=== PATIENT | female | born 1975 | race Caucasian/White ===

== ENCOUNTER 2018-10-08 14:44 | Day surgery (SDC) | payer MEDICAID ==
[2018-10-08] MEDS ORDERED: Sodium Chloride 0.9% 1,000 ML IV SCH (15:45)
[2018-10-08] MEDS ORDERED: Sodium Chloride 0.9% 10 ML Syringe FLUSH ONE (16:24)
[2018-10-08] MEDS ORDERED: Sodium Chloride 0.9% 75 ML IV ONE (16:24)
[2018-10-08] MEDS ORDERED: Iopamidol 612 MG/ML 100 ML Bottle IV SCH (16:30)
--- NOTE | 2018-10-08 16:32 | EDM.PDOC ---
ED HPI GENERAL MEDICAL PROBLEM - General Chief Complaint: Abdominal Pain Stated Complaint: ABD PAIN Time Seen by Provider: 10/08/18 15:15 Source of Information: Reports: Patient History Limitations: Reports: No Limitations - History of Present Illness INITIAL COMMENTS - FREE TEXT/NARRATIVE: 42-year-old female presents to the emergency room with abdominal pain. She was seen 5 days ago on the clinic, diagnosed with UTI and started on Cipro. Urinary symptoms did seem to improve but pain in her right upper quadrant and lower abdomen have worsened over the past 48 hours. She denies fevers or chills, nausea or vomiting, has no bowel changes. No previous history of abdominal surgeries and she insists that she is not . She went into the clinic for a recheck and she was sent to the emergency room. Onset: Gradual (over the past 5 days) Severity: Moderate Associated Symptoms: Reports: Loss of Appetite, Malaise. Denies: Confusion, Fever/Chills, Headaches, Shortness of Breath Abdominal Pain Score (Numeric/FACES): 7 - Related Data Allergies Allergy/AdvReac Type Severity Reaction Status Date / Time Latex, Natural Rubber Allergy Rash Verified 10/08/18 21:28 Home Meds: Home Meds Acetaminophen/HYDROcodone [Kensett 325-5 MG] 1 tab PO Q4H PRN #15 tablet 10/09/18 [Rx] cephALEXin [Cephalexin] 500 mg PO TID #12 capsule 10/09/18 [Rx] Past Medical History HEENT History: Reports: Impaired Vision [employer] History: Reports: Social & Family History - Tobacco Use Smoking Status *Q: Never Smoker - Recreational Drug Use Recreational Drug Use: No ED ROS GENERAL - Review of Systems Review Of Systems: See Below Constitutional: Reports: Malaise, Decreased Appetite. Denies: Fever, Chills HEENT: Reports: No Symptoms Respiratory: Reports: No Symptoms Cardiovascular: Reports: No Symptoms GI/Abdominal: Reports: Abdominal Pain, Decreased Appetite. Denies: Constipation , Diarrhea, Nausea, Vomiting : Reports: Dysuria, Frequency (Urinary symptoms have improved over the past 48 hours) Musculoskeletal: Reports: No Symptoms Skin: Reports: No Symptoms Neurological: Reports: No Symptoms Psychiatric: Reports: No Symptoms ED EXAM, GI/ABD - Physical Exam Exam: See Below Exam Limited By: No Limitations General Appearance: Alert, Moderate Distress (Looks fairly uncomfortable) Eyes: Bilateral: Normal Appearance (No jaundice, normal hydration) Respiratory/Chest: No Respiratory Distress, Lungs Clear Cardiovascular: Regular Rate, Rhythm GI/Abdominal Exam: Tender (Very tender abdomen to palpation was guarding in the right upper quadrant and across the suprapubic area especially right lower quadrant) Neurological: Alert, Oriented Psychiatric: Normal Affect, Normal Mood Skin Exam: Warm, Dry Course - Vital Signs Last Recorded V/S: Last Vital Signs Temp 98.2 F 10/09/18 11:38 Pulse 65 10/09/18 11:38 Resp 16 10/09/18 11:38 BP 98/53 L 10/09/18 11:38 Pulse Ox 97 10/09/18 11:38 - Orders/Labs/Meds Orders: Active Orders 24 hr Category Date Time Status Patient Status [ADT] Routine ADT 10/08/18 19:49 Active Ambulate [RC] ASDIRECTED Care 10/08/18 21:35 Active Ambulate [RC] PER UNIT ROUTINE Care 10/08/18 21:02 Active Dietary Supplements [RC] BIDMEALS Care 10/08/18 17:39 Active Dietary Supplements [RC] BIDMEALS Care 10/08/18 21:20 Active Head of Bed Elevation [RC] CONTINUOUS Care 10/08/18 21:35 Active Overnight Pulse Oximetry [RC] Click to Edit Care 10/08/18 21:27 Active Oxygen Therapy [RC] PRN Care 10/08/18 21:02 Active Pneumonia Education [RC] UPON Care 10/08/18 21:35 Active RT Incentive Spirometry [RC] PER UNIT ROUTINE Care 10/08/18 21:02 Active RT Incentive Spirometry [RC] Q1HWA Care 10/08/18 21:35 Active Ready for Discharge [RC] PER UNIT ROUTINE Care 10/09/18 15:16 Active Turn, Cough, Deep Breathe [RC] Q1HWA Care 10/08/18 21:35 Active Up to Chair [RC] QID Care 10/08/18 21:02 Active Up to Chair [RC] TIDMEALS Care 10/08/18 21:35 Active Vital Signs [RC] PER UNIT ROUTINE Care 10/08/18 21:02 Active Respiratory Care Assess and Treatment [CONS] Routine Cons 10/08/18 21:35 Active CULTURE ANAEROBIC [RM] Routine Lab 01/14/19 21:03 Received CULTURE URINE [RM] Stat Lab 10/08/18 17:15 Received CULTURE WOUND + SMEAR [RM] Routine Lab 10/08/18 21:03 Results Oral Care [OM.PC] BID Oth 10/08/18 21:45 Ordered Pulse Oximetry Continuous Monitoring [OM.PC] Routine Oth 10/08/18 21:26 Ordered SCD [Sequential Compression Device] [OM.PC] Routine Oth 10/08/18 21:23 Ordered Resuscitation Status Routine Resus Stat 10/08/18 21:02 Ordered Labs: Laboratory Tests 10/08/18 10/08/18 10/08/18 Range/Units 15:40 15:40 15:40 WBC 6.5 (4.5-11.0) K/uL RBC 4.75 (3.30-5.50) M/uL Hgb 13.2 (12.0-15.0) g/dL Hct 39.6 (36.0-48.0) % MCV 83 (80-98) fL MCH 28 (27-31) pg MCHC 33 (32-36) % Plt Count 323 (150-400) K/uL Neut % (Auto) 53 (36-66) % Lymph % (Auto) 34 (24-44) % [place] % (Auto) 11 H (2-6) % Eos % (Auto) 2 (2-4) % Baso % (Auto) 1 (0-1) % Sodium 140 (140-148) mmol/L Potassium 3.3 L (3.6-5.2) mmol/L Chloride 103 (100-108) mmol/L Carbon Dioxide 28 (21-32) mmol/L Anion Gap 12.3 (5.0-14.0) mmol/L BUN 7 (7-18) mg/dL Creatinine 0.8 (0.6-1.0) mg/dL Est Cr Clr Drug Dosing 86.63 mL/min Estimated GFR (MDRD) > 60 (>60) Glucose 97 (74-106) mg/dL Calcium 9.1 (8.5-10.1) mg/dL Total Bilirubin 0.6 (0.2-1.0) mg/dL AST 16 (15-37) U/L ALT 22 (12-78) U/L Alkaline Phosphatase 55 (46-116) U/L Total Protein 7.1 (6.4-8.2) g/dL Albumin 3.6 (3.4-5.0) g/dL Globulin 3.5 (2.3-3.5) g/dL Albumin/Globulin Ratio 1.0 L (1.2-2.2) Amylase 56 (25-115) U/L Lipase 123 (73-393) U/L Urine Color Yellow Urine Appearance Clear Urine pH 7.0 (4.5-8.0) Ur Specific [place] 1.010 (1.008-1.030) Urine Protein Negative (NEGATIVE) mg/dL Urine Glucose (UA) Normal (NEGATIVE) mg/dL Urine Ketones Negative (NEGATIVE) mg/dL Urine Occult Blood Moderate (NEGATIVE) Urine Nitrite Negative (NEGATIVE) Urine Bilirubin Negative (NEGATIVE) Urine Urobilinogen Normal (NORMAL) mg/dL Ur Leukocyte Esterase Small (NEGATIVE) Urine RBC 5-10 H (0-5) Urine WBC 10-20 H (0-5) Ur Epithelial Cells Moderate Amorphous Sediment Not seen Urine Bacteria Moderate Urine Mucus Not seen 10/09/18 10/09/18 Range/Units 05:00 06:08 WBC 12.3 H (4.5-11.0) K/uL RBC 4.03 (3.30-5.50) M/uL Hgb 11.2 L D (12.0-15.0) g/dL Hct 34.2 L (36.0-48.0) % MCV 85 (80-98) fL MCH 28 (27-31) pg MCHC 33 (32-36) % Plt Count 297 (150-400) K/uL Neut % (Auto) 82 H (36-66) % Lymph % (Auto) 11 L (24-44) % [place] % (Auto) 8 H (2-6) % Eos % (Auto) 0 L (2-4) % Baso % (Auto) 0 (0-1) % Sodium (140-148) mmol/L Potassium (3.6-5.2) mmol/L Chloride (100-108) mmol/L Carbon Dioxide (21-32) mmol/L Anion Gap (5.0-14.0) mmol/L BUN (7-18) mg/dL Creatinine (0.6-1.0) mg/dL Est Cr Clr Drug Dosing mL/min Estimated GFR (MDRD) (>60) Glucose (74-106) mg/dL Calcium (8.5-10.1) mg/dL Total Bilirubin 0.5 (0.2-1.0) mg/dL AST (15-37) U/L ALT (12-78) U/L Alkaline Phosphatase 44 L (46-116) U/L Total Protein (6.4-8.2) g/dL Albumin (3.4-5.0) g/dL Globulin (2.3-3.5) g/dL Albumin/Globulin Ratio (1.2-2.2) Amylase (25-115) U/L Lipase (73-393) U/L Urine Color Urine Appearance Urine pH (4.5-8.0) Ur Specific [place] (1.008-1.030) Urine Protein (NEGATIVE) mg/dL Urine Glucose (UA) (NEGATIVE) mg/dL Urine Ketones (NEGATIVE) mg/dL Urine Occult Blood (NEGATIVE) Urine Nitrite (NEGATIVE) Urine Bilirubin (NEGATIVE) Urine Urobilinogen (NORMAL) mg/dL Ur Leukocyte Esterase (NEGATIVE) Urine RBC (0-5) Urine WBC (0-5) Ur Epithelial Cells Amorphous Sediment Urine Bacteria Urine Mucus Meds: Medications Discontinued Medications Generic Name Dose Route Start Last Admin Trade Name Freq PRN Reason Stop Dose Admin Hydrocodone Bitart/Acetaminophen 1 - 2 tab 10/08/18 21:02 10/09/18 14:57 K[place]ett 325-5 Mg PO 1 tab Q4H PRN Administration Pain (moderate 4-6) Bupivacaine HCl Confirm 10/08/18 18:20 10/08/18 20:04 Marcaine 0.5% Administered 10/08/18 18:21 10 ml Dose Administration 50 ml .ROUTE .STK-MED ONE Cephalexin 500 mg 10/08/18 22:00 10/09/18 15:00 Keflex PO 500 mg Q6HR MARK Administration Dexamethasone Confirm 10/08/18 18:17 Dexamethasone Administered 10/08/18 18:18 Dose 4 mg .ROUTE .STK-MED ONE Fentanyl Confirm 10/08/18 18:16 Sublimaze Administered 10/08/18 18:17 Dose 250 mcg .ROUTE .STK-MED ONE Fentanyl 50 mcg 10/08/18 20:48 10/08/18 22:10 Sublimaze IVPUSH 50 mcg Q1H PRN Administration Pain Glycopyrrolate Confirm 10/08/18 18:17 Robinul Administered 10/08/18 18:18 Dose 1 mg .ROUTE .STK-MED ONE Sodium Chloride 1,000 mls @ 500 mls/hr 10/08/18 15:45 10/08/18 15:52 Normal Saline IV 500 mls/hr ASDIRECTED MARK Administration Sodium Chloride 75 mls @ 3.5 mls/sec 10/08/18 16:24 10/08/18 16:39 Normal Saline IV 10/08/18 16:25 3.5 mls/sec ONETIME ONE Administration Ceftriaxone Sodium 1 gm/ 50 mls @ 100 mls/hr 10/08/18 17:32 10/08/18 17:48 Sodium Chloride IV 10/08/18 18:01 100 mls/hr ONETIME ONE Administration Lactated Ringer's Confirm 10/08/18 18:35 Ringers, Lactated Administered 10/08/18 18:36 Dose 1,000 mls @ as directed .ROUTE .STK-MED ONE Dextrose/Lactated Ringer's 1,000 mls @ 125 mls/hr 10/08/18 21:15 10/09/18 04: 57 Dextrose 5%-Lactated Ringers IV 125 mls/hr ASDIRECTED MARK Administration Iopamidol 100 ml 10/08/18 16:30 10/08/18 16:39 Isovue-300 (61%) IV 10/08/18 18:00 100 ml . DIRECTED MARK Administration Lidocaine/Epinephrine Confirm 10/08/18 18:20 10/08/18 20:04 Xylocaine 1% With Epinephrine 1:100,000 Administered 10/08/18 18:21 10 ml Dose Administration 50 ml .ROUTE .STK-MED ONE Midazolam HCl Confirm 10/08/18 18:16 Versed 1 Mg/Ml Administered 10/08/18 18:17 Dose 2 mg .ROUTE .STK-MED ONE Neostigmine Methylsulfate Confirm 10/08/18 18:17 Neostigmine Administered 10/08/18 18:18 Dose 5 mg .ROUTE .STK-MED ONE Ondansetron HCl Confirm 10/08/18 18:17 Zofran Administered 10/08/18 18:18 Dose 4 mg .ROUTE .STK-MED ONE Ondansetron HCl 4 mg 10/08/18 21:02 Zofran IVPUSH Q6H PRN Nausea/Vomiting Propofol Confirm 10/08/18 18:17 Diprivan 20 Ml Administered 10/08/18 18:18 Dose 200 mg .ROUTE .STK-MED ONE Rocuronium [place] Confirm 10/08/18 18:17 Zemuron Administered 10/08/18 18:18 Dose 50 mg .ROUTE .STK-MED ONE Sodium Chloride 10 ml 10/08/18 16:24 10/08/18 16:39 Saline Flush FLUSH 10/08/18 16:25 10 ml ONETIME ONE Administration Succinylcholine Chloride Confirm 10/08/18 18:17 Quelicin Administered 10/08/18 18:18 Dose 200 mg .ROUTE .STK-MED ONE - Re-Assessments/Exams Free Text/Narrative Re-Assessment/Exam: 10/08/18 16:39 UA was repeated, CBC CMP lipase and amylase obtained. Normal saline at 500 mL an hour was started with intent and getting a CT the abdomen and pelvis with contrast. 10/08/18 17:49 UA actually shows more abnormalities now than in the clinic 5 days ago. A culture was initiated. CBC and CMP, lipase and amylase were remarkably normal. CT the abdomen was obtained and showed cholelithiasis with a dilated gall bladder but no pericholecystic fluid or wall thickening. A reexamination confirmed a very significant Sena sign, so this was discussed with Dr. Ramirez. He agreed to come and interview the patient and consider a cholecystectomy tonight, the patient and her are eager to get this resolved. 1 g of Rocephin IV was started to cover the urinary tract infection pending the culture findings in 24-48 hours. IV fluids were continued. Departure - Departure Time of Disposition: 18:36 Disposition: Admitted As Inpatient 67 Condition: Fair Clinical Impression: Cholelithiasis Qualifiers: Cholelithiasis location: gallbladder Cholecystitis presence: with cholecystitis Cholecystitis acuity: acute Biliary obstruction: without biliary obstruction Qualified Code(s): K80.00 - Calculus of gallbladder with acute cholecystitis without obstruction UTI (urinary tract infection) Qualifiers: Urinary tract infection type: acute cystitis Hematuria presence: with hematuria Qualified Code(s): N30.01 - Acute cystitis with hematuria - Discharge Information - My Orders Last 24 Hours: My Active Orders 10/08/18 17:15 CULTURE URINE [RM] Stat 10/08/18 17:39 Dietary Supplements [RC] BIDMEALS - Assessment/Plan Last 24 Hours: My Active Orders 10/08/18 17:15 CULTURE URINE [RM] Stat 10/08/18 17:39 Dietary Supplements [RC] BIDMEALS
[2018-10-08] MEDS ORDERED: cefTRIAXone 1 GM in Sodium Chloride 0.9% 50 ML IV ONE (17:32)
[2018-10-08] MEDS ORDERED: Midazolam 1 MG/ML 2 ML SDV ONE (18:16)
[2018-10-08] MEDS ORDERED: fentaNYL 250 MCG/5 ML SDV ONE (18:16)
[2018-10-08] MEDS ORDERED: Ondansetron 4 MG/2 ML SDV ONE (18:17)
[2018-10-08] MEDS ORDERED: Neostigmine Methylsulfate 1 MG/ML 5 ML Syringe ONE (18:17)
[2018-10-08] MEDS ORDERED: Dexamethasone 4 MG/ML SDV ONE (18:17)
[2018-10-08] MEDS ORDERED: Glycopyrrolate 0.2 MG/ML 5 ML MDV ONE (18:17)
[2018-10-08] MEDS ORDERED: Succinylcholine 200 MG/10 ML MDV ONE (18:17)
[2018-10-08] MEDS ORDERED: Rocuronium 50 MG/5 ML Vial ONE (18:17)
[2018-10-08] MEDS ORDERED: Propofol 200 MG/20 ML SDV ONE (18:17)
[2018-10-08] MEDS ORDERED: Lidocaine 1% with EPINEPHrine 1:100,000 50 ML MDV ONE (18:20)
[2018-10-08] MEDS ORDERED: Bupivacaine 0.5% 50 ML MDV ONE (18:20)
[2018-10-08] MEDS ORDERED: Lactated Ringers 1,000 ML ONE (18:35)
[2018-10-08] MEDS: fentaNYL 100 MCG/2 ML SDV IVPUSH PRN ×2 (20:57→22:10)
[2018-10-08] MEDS ORDERED: Ondansetron 4 MG/2 ML SDV IVPUSH PRN (21:02)
[2018-10-08] MEDS: Dextrose 5%-Lactated Ringers 1,000 ML IV SCH (21:34)
[2018-10-08] MEDS: Cephalexin 250 MG Cap PO SCH (22:39)
[2018-10-08] MEDS: Acetaminophen/HYDROcodone 325-5 MG Tab PO PRN (23:47)
--- NOTE | 2018-10-09 02:39 | OR ---
DATE OF PROCEDURE: 10/08/2018 PREOPERATIVE DIAGNOSIS: Symptomatic cholelithiasis. POSTOPERATIVE DIAGNOSIS: Symptomatic cholelithiasis. PROCEDURE: Laparoscopic cholecystectomy. ANESTHESIA: General endotracheal. INDICATION: This is a 42-year-old white female, who complaints of several days of abdominal pain. She presented to the clinic today and was referred to the emergency room with quite a bit of tenderness in her right upper quadrant. She was worked up in the emergency room with normal liver functions and CBC. A CAT scan of her abdomen and pelvis showed distended gallbladder with two stones in it and almost a cm in diameter. There was no gallbladder wall thickening nor pericholecystic fluid. The ductal system appeared unremarkable. She has had no prior abdominal surgery. She is admitted for a laparoscopic cholecystectomy. I counseled her for this including risks and alternatives and she gave her informed consent to proceed. She is lying in the position on her left side and she cannot lie on her right side, as she is very uncomfortable and tender. DESCRIPTION OF PROCEDURE: After adequate general endotracheal anesthesia was obtained, the patient's abdomen was prepped and draped in the usual sterile fashion. The leg compression stockings were in place and used during the entire procedure. Time-out was held. An infraumbilical semicircular incision was made. Under direct vision, a 12-mm port was introduced in the abdomen through this incision. The camera was introduced into the abdomen and the abdomen was insufflated to a pressure of 15 mmHg with carbon dioxide. No evidence of intraabdominal injury was seen. Under direct vision, a 12-mm port was placed in the epigastrium and a 5-mm port was placed in the right lower quadrant. The gallbladder was grasped and elevated. It was noted to be distended. There were no adhesions to it. The cystic duct and arteries were dissected free. They were each clipped up on the gallbladder and three times proximally and then separately divided. The gallbladder was then dissected free from the gallbladder bed using Bovie electrocautery. The gallbladder was placed in a sample retrieval bag and elevated up through the anterior abdominal wall via the epigastric port site. The epigastric port was reintroduced back in the abdomen. The gallbladder bed was irrigated and suctioned dry, all looked well. No other abnormalities were noted. The epigastric port was removed and the fascial closure device was used to place an 0 Vicryl stitch in this fascial defect. The infraumbilical port was removed with an interrupted stitch of 0 Vicryl used to close this fascial defect. We then evacuated as much CO2 as we could from the abdomen via the 5-mm port site in the right lower quadrant and then this port was removed. Lidocaine 1% with epinephrine in a 50:50 mix with 0.5% Marcaine with epinephrine was infiltrated about all incisions. A 4-0 Vicryl used and a subcuticular stitch was placed to approximate the skin of all incisions. Dermabond was applied. The anesthesia was reversed. She was extubated and brought to the recovery room in good condition. Cristofer Ramirez MD /[id number]
[2018-10-09] MEDS: Cephalexin 250 MG Cap PO SCH ×3 (03:54→15:00)
[2018-10-09] MEDS: Acetaminophen/HYDROcodone 325-5 MG Tab PO PRN ×3 (04:03→14:57)
[2018-10-09] MEDS: Dextrose 5%-Lactated Ringers 1,000 ML IV SCH (04:57)
--- NOTE | 2018-10-09 06:35 | PCM.SURGPN ---
- General Info Date of Service: 10/09/18 Date of Surgery/Procedure: 10/08/18 POD#: 1 Post-Op Diagnosis: Symptomatic cholelithiasis, UTI Functional Status: Reports: Tolerating Diet, Ambulating, Urinating, Incentive Spirometry - Review of Systems General: Reports: No Symptoms HEENT: Reports: No Symptoms Pulmonary: Reports: No Symptoms Cardiovascular: Reports: No Symptoms Gastrointestinal: Reports: Abdominal Pain (Her upper abdominal pain has resolved , her lower abdominal pain persists. ) Genitourinary: Reports: No Symptoms Musculoskeletal: Reports: No Symptoms Skin: Reports: No Symptoms Neurological: Reports: No Symptoms Psychiatric: Reports: No Symptoms - Patient Data Vitals - Most Recent: Last Vital Signs Temp 98.5 F 10/09/18 02:00 Pulse 68 10/09/18 04:02 Resp 18 10/09/18 04:02 BP 100/52 L 10/09/18 04:02 Pulse Ox 95 10/09/18 04:02 Weight - Most Recent: 157 lb 13.616 oz I&O - Last 24 Hours: Intake & Output 10/08/18 10/08/18 10/09/18 14:59 22:59 06:59 Intake Total 360 1394 Output Total 150 Balance 360 1244 Lab Results Last 24 Hrs: Laboratory Results - last 24 hr 10/08/18 10/08/18 10/08/18 Range/Units 15:40 15:40 15:40 WBC 6.5 (4.5-11.0) K/uL RBC 4.75 (3.30-5.50) M/uL Hgb 13.2 (12.0-15.0) g/dL Hct 39.6 (36.0-48.0) % MCV 83 (80-98) fL MCH 28 (27-31) pg MCHC 33 (32-36) % Plt Count 323 (150-400) K/uL Neut % (Auto) 53 (36-66) % Lymph % (Auto) 34 (24-44) % [place] % (Auto) 11 H (2-6) % Eos % (Auto) 2 (2-4) % Baso % (Auto) 1 (0-1) % Sodium 140 (140-148) mmol/L Potassium 3.3 L (3.6-5.2) mmol/L Chloride 103 (100-108) mmol/L Carbon Dioxide 28 (21-32) mmol/L Anion Gap 12.3 (5.0-14.0) mmol/L BUN 7 (7-18) mg/dL Creatinine 0.8 (0.6-1.0) mg/dL Est Cr Clr Drug Dosing 86.63 mL/min Estimated GFR (MDRD) > 60 (>60) Glucose 97 (74-106) mg/dL Calcium 9.1 (8.5-10.1) mg/dL Total Bilirubin 0.6 (0.2-1.0) mg/dL AST 16 (15-37) U/L ALT 22 (12-78) U/L Alkaline Phosphatase 55 (46-116) U/L Total Protein 7.1 (6.4-8.2) g/dL Albumin 3.6 (3.4-5.0) g/dL Globulin 3.5 (2.3-3.5) g/dL Albumin/Globulin Ratio 1.0 L (1.2-2.2) Amylase 56 (25-115) U/L Lipase 123 (73-393) U/L Urine Color Yellow Urine Appearance Clear Urine pH 7.0 (4.5-8.0) Ur Specific [place] 1.010 (1.008-1.030) Urine Protein Negative (NEGATIVE) mg/dL Urine Glucose (UA) Normal (NEGATIVE) mg/dL Urine Ketones Negative (NEGATIVE) mg/dL Urine Occult Blood Moderate (NEGATIVE) Urine Nitrite Negative (NEGATIVE) Urine Bilirubin Negative (NEGATIVE) Urine Urobilinogen Normal (NORMAL) mg/dL Ur Leukocyte Esterase Small (NEGATIVE) Urine RBC 5-10 H (0-5) Urine WBC 10-20 H (0-5) Ur Epithelial Cells Moderate Amorphous Sediment Not seen Urine Bacteria Moderate Urine Mucus Not seen 10/09/18 Range/Units 05:00 WBC 12.3 H (4.5-11.0) K/uL RBC 4.03 (3.30-5.50) M/uL Hgb 11.2 L D (12.0-15.0) g/dL Hct 34.2 L (36.0-48.0) % MCV 85 (80-98) fL MCH 28 (27-31) pg MCHC 33 (32-36) % Plt Count 297 (150-400) K/uL Neut % (Auto) 82 H (36-66) % Lymph % (Auto) 11 L (24-44) % [place] % (Auto) 8 H (2-6) % Eos % (Auto) 0 L (2-4) % Baso % (Auto) 0 (0-1) % Sodium (140-148) mmol/L Potassium (3.6-5.2) mmol/L Chloride (100-108) mmol/L Carbon Dioxide (21-32) mmol/L Anion Gap (5.0-14.0) mmol/L BUN (7-18) mg/dL Creatinine (0.6-1.0) mg/dL Est Cr Clr Drug Dosing mL/min Estimated GFR (MDRD) (>60) Glucose (74-106) mg/dL Calcium (8.5-10.1) mg/dL Total Bilirubin (0.2-1.0) mg/dL AST (15-37) U/L ALT (12-78) U/L Alkaline Phosphatase (46-116) U/L Total Protein (6.4-8.2) g/dL Albumin (3.4-5.0) g/dL Globulin (2.3-3.5) g/dL Albumin/Globulin Ratio (1.2-2.2) Amylase (25-115) U/L Lipase (73-393) U/L Urine Color Urine Appearance Urine pH (4.5-8.0) Ur Specific [place] (1.008-1.030) Urine Protein (NEGATIVE) mg/dL Urine Glucose (UA) (NEGATIVE) mg/dL Urine Ketones (NEGATIVE) mg/dL Urine Occult Blood (NEGATIVE) Urine Nitrite (NEGATIVE) Urine Bilirubin (NEGATIVE) Urine Urobilinogen (NORMAL) mg/dL Ur Leukocyte Esterase (NEGATIVE) Urine RBC (0-5) Urine WBC (0-5) Ur Epithelial Cells Amorphous Sediment Urine Bacteria Urine Mucus Bharath Results Last 24 Hrs: Microbiology 10/08/18 21:03 Gram Stain - Final Gallbladder Med Orders - Current: Current Medications Hydrocodone Bitart/Acetaminophen ([place] 325-5 Mg) 1 - 2 tab PO Q4H PRN PRN Reason: Pain (moderate 4-6) Last Admin: 10/09/18 04:03 Dose: 1 tab Cephalexin (Keflex) 500 mg PO Q6HR MARK Last Admin: 10/09/18 03:54 Dose: 500 mg Fentanyl (Sublimaze) 50 mcg IVPUSH Q1H PRN PRN Reason: Pain Last Admin: 10/08/18 22:10 Dose: 50 mcg Sodium Chloride (Normal Saline) 1,000 mls @ 500 mls/hr IV ASDIRECTED [facility] Last Admin: 10/08/18 15:52 Dose: 500 mls/hr Dextrose/Lactated Ringer's (Dextrose 5%-Lactated Ringers) 1,000 mls @ 125 mls/ hr IV ASDIRECTED [facility] Last Admin: 10/09/18 04:57 Dose: 125 mls/hr Ondansetron HCl (Zofran) 4 mg IVPUSH Q6H PRN PRN Reason: Nausea/Vomiting Discontinued Medications Bupivacaine HCl (Marcaine 0.5%) Confirm Administered Dose 50 ml .ROUTE .STK-MED ONE Stop: 10/08/18 18:21 Last Admin: 10/08/18 20:04 Dose: 10 ml Dexamethasone (Dexamethasone) Confirm Administered Dose 4 mg .ROUTE .STK-MED ONE Stop: 10/08/18 18:18 Fentanyl (Sublimaze) Confirm Administered Dose 250 mcg .ROUTE .STK-MED ONE Stop: 10/08/18 18:17 Glycopyrrolate (Robinul) Confirm Administered Dose 1 mg .ROUTE .STK-MED ONE Stop: 10/08/18 18:18 Sodium Chloride (Normal Saline) 75 mls @ 3.5 mls/sec IV ONETIME ONE Stop: 10/08/18 16:25 Last Admin: 10/08/18 16:39 Dose: 3.5 mls/sec Ceftriaxone Sodium 1 gm/ (Sodium Chloride) 50 mls @ 100 mls/hr IV ONETIME ONE Stop: 10/08/18 18:01 Last Admin: 10/08/18 17:48 Dose: 100 mls/hr Lactated Ringer's (Ringers, Lactated) Confirm Administered Dose 1,000 mls @ as directed .ROUTE .STK-MED ONE Stop: 10/08/18 18:36 Iopamidol (Isovue-300 (61%)) 100 ml IV . DIRECTED [facility] Stop: 10/08/18 18:00 Last Admin: 10/08/18 16:39 Dose: 100 ml Lidocaine/Epinephrine (Xylocaine 1% With Epinephrine 1:100,000) Confirm Administered Dose 50 ml .ROUTE .STK-MED ONE Stop: 10/08/18 18:21 Last Admin: 10/08/18 20:04 Dose: 10 ml Midazolam HCl (Versed 1 Mg/Ml) Confirm Administered Dose 2 mg .ROUTE .STK-MED ONE Stop: 10/08/18 18:17 Neostigmine Methylsulfate (Neostigmine) Confirm Administered Dose 5 mg .ROUTE .STK-MED ONE Stop: 10/08/18 18:18 Ondansetron HCl (Zofran) Confirm Administered Dose 4 mg .ROUTE .STK-MED ONE Stop: 10/08/18 18:18 Propofol (Diprivan 20 Ml) Confirm Administered Dose 200 mg .ROUTE .STK-MED ONE Stop: 10/08/18 18:18 Rocuronium [place] (Zemuron) Confirm Administered Dose 50 mg .ROUTE .STK-MED ONE Stop: 10/08/18 18:18 Sodium Chloride (Saline Flush) 10 ml FLUSH ONETIME ONE Stop: 10/08/18 16:25 Last Admin: 10/08/18 16:39 Dose: 10 ml Succinylcholine Chloride (Quelicin) Confirm Administered Dose 200 mg .ROUTE .STK -MED ONE Stop: 10/08/18 18:18 - Exam Wound/Incisions: Healing Well, No Drainage General: Alert, Oriented, Cooperative, Mild Distress Lungs: Clear to Auscultation, Normal Respiratory Effort Cardiovascular: Regular Rate, Regular Rhythm GI/Abdominal Exam: Normal Bowel Sounds Extremities: Normal Inspection Skin: Warm, Dry, Intact Neurological: No New Focal Deficit Psy/Mental Status: Alert, Normal Affect, Normal Mood - Problem List & Annotations (1) Cholelithiasis SNOMED Code(s): 952427802 Code(s): K80.20 - CALCULUS OF GALLBLADDER W/O CHOLECYSTITIS W/O OBSTRUCTION Status: Acute Current Visit: Yes Qualifiers: Cholelithiasis location: gallbladder Cholecystitis presence: with cholecystitis Cholecystitis acuity: acute Biliary obstruction: without biliary obstruction Qualified Code(s): K80.00 - Calculus of gallbladder with acute cholecystitis without obstruction (2) UTI (urinary tract infection) SNOMED Code(s): 28281756 Code(s): N39.0 - URINARY TRACT INFECTION, SITE NOT SPECIFIED Status: Acute Current Visit: Yes Qualifiers: Urinary tract infection type: acute cystitis Hematuria presence: with hematuria Qualified Code(s): N30.01 - Acute cystitis with hematuria - Problem List Review Problem List Initiated/Reviewed/Updated: Yes - My Orders Last 24 Hours: Active Orders 24 hr Category Date Time Status Patient Status [ADT] Routine ADT 10/08/18 19:49 Active Ambulate [RC] ASDIRECTED Care 10/08/18 21:35 Active Ambulate [RC] PER UNIT ROUTINE Care 10/08/18 21:02 Active Dietary Supplements [RC] BIDMEALS Care 10/08/18 17:39 Active Dietary Supplements [RC] BIDMEALS Care 10/08/18 21:20 Active Head of Bed Elevation [RC] CONTINUOUS Care 10/08/18 21:35 Active Overnight Pulse Oximetry [RC] Click to Edit Care 10/08/18 21:27 Active Oxygen Therapy [RC] PRN Care 10/08/18 21:02 Active Pneumonia Education [RC] UPON Care 10/08/18 21:35 Active RT Incentive Spirometry [RC] PER UNIT ROUTINE Care 10/08/18 21:02 Active RT Incentive Spirometry [RC] Q1HWA Care 10/08/18 21:35 Active Turn, Cough, Deep Breathe [RC] Q1HWA Care 10/08/18 21:35 Active Up to Chair [RC] QID Care 10/08/18 21:02 Active Up to Chair [RC] TIDMEALS Care 10/08/18 21:35 Active Vital Signs [RC] PER UNIT ROUTINE Care 10/08/18 21:02 Active Respiratory Care Assess and Treatment [CONS] Routine Cons 10/08/18 21:35 Active Advance Diet Instructions [DIET] Diet 10/08/18 Breakfast Active Abdomen Pelvis w Cont [CT] Stat Exams 10/08/18 16:20 Taken ALKALINE PHOSPHATASE [CHEM] Routine Lab 10/09/18 06:08 Received BILIRUBIN TOTAL [CHEM] Routine Lab 10/09/18 06:08 Received CULTURE ANAEROBIC [RM] Routine Lab 10/08/18 21:03 Received CULTURE URINE [RM] Stat Lab 10/08/18 17:15 Received CULTURE WOUND + SMEAR [RM] Routine Lab 10/08/18 21:03 Results Acetaminophen/HYDROcodone [[place] 325-5 MG] Med 10/08/18 21:02 Active 1 - 2 tab PO Q4H PRN Dextrose 5%-Lactated Ringers 1,000 ml Med 10/08/18 21:15 Active IV ASDIRECTED Ondansetron [Zofran] Med 10/08/18 21:02 Active 4 mg IVPUSH Q6H PRN Sodium Chloride 0.9% [Normal Saline] 1,000 ml Med 10/08/18 15:45 Active IV ASDIRECTED cephALEXin [Keflex] Med 10/08/18 22:00 Active 500 mg PO Q6HR fentaNYL [Sublimaze] Med 10/08/18 20:48 Active 50 mcg IVPUSH Q1H PRN Oral Care [OM.PC] BID Oth 10/08/18 21:45 Ordered Oral Care [OM.PC] BID Oth 10/09/18 21:45 Ordered Oral Care [OM.PC] BID Oth 10/10/18 21:45 Ordered Oral Care [OM.PC] BID Oth 10/11/18 21:45 Ordered Oral Care [OM.PC] BID Oth 10/12/18 21:45 Ordered Oral Care [OM.PC] BID Oth 10/13/18 21:45 Ordered Oral Care [OM.PC] BID Oth 10/14/18 21:45 Ordered Oral Care [OM.PC] BID Oth 10/15/18 21:45 Ordered Oral Care [OM.PC] BID Oth 10/16/18 21:45 Ordered Oral Care [OM.PC] BID Oth 10/17/18 21:45 Ordered Pulse Oximetry Continuous Monitoring [OM.PC] Routine Oth 10/08/18 21:26 Ordered SCD [Sequential Compression Device] [OM.PC] Routine Oth 10/08/18 21:23 Ordered Resuscitation Status Routine Resus Stat 10/08/18 21:02 Ordered Medication Orders Hydrocodone Bitart/Acetaminophen ([place] 325-5 Mg) 1 - 2 tab PO Q4H PRN PRN Reason: Pain (moderate 4-6) Last Admin: 10/09/18 04:03 Dose: 1 tab Admin: 10/08/18 23:47 Dose: 2 tab Cephalexin (Keflex) 500 mg PO Q6HR MARK Last Admin: 10/09/18 03:54 Dose: 500 mg Admin: 10/08/18 22:39 Dose: 500 mg Fentanyl (Sublimaze) 50 mcg IVPUSH Q1H PRN PRN Reason: Pain Last Admin: 10/08/18 22:10 Dose: 50 mcg Admin: 10/08/18 20:57 Dose: 50 mcg Sodium Chloride (Normal Saline) 1,000 mls @ 500 mls/hr IV ASDIRECTED MARK Last Admin: 10/08/18 15:52 Dose: 500 mls/hr Dextrose/Lactated Ringer's (Dextrose 5%-Lactated Ringers) 1,000 mls @ 125 mls/ hr IV ASDIRECTED MARK Last Admin: 10/09/18 04:57 Dose: 125 mls/hr Infusion: 10/09/18 04:57 Dose: 125 mls/hr Admin: 10/08/18 21:34 Dose: 125 mls/hr Ondansetron HCl (Zofran) 4 mg IVPUSH Q6H PRN PRN Reason: Nausea/Vomiting - Assessment Assessment (Free Text/Narrative):: Tolerating liquids. Still with lower abdominal pain. - Plan Plan (Free Text/Narrative):: Continue oral antibiotics until urine culture is obtained. Advance diet as tolerated.
[2018-10-09 11:39] VITALS: BP 98/53
--- NOTE | 2018-10-09 13:58 | PCM.CONS ---
H&P History of Present Illness - General Date of Service: 10/09/18 Admit Problem/Dx: Admission Diagnosis/Problem Admission Diagnosis/Problem Laparoscopic cholecystectomy Source of Information: Patient, Family, Provider History Limitations: Reports: No Limitations - History of Present Illness Initial Comments - Free Text/Narative: I was asked to see Lo today by Dr. Ramriez regarding mid and lower abdominal pain not explained by CT scan or current acute issues. Patient reports 4 days of fairly severe right upper quadrant pain as well as some progressive periumbilical to lower mid abdomen pain. The lower abdominal pain slowly progressed over the 4 days. This is described as an achy pain that is mild to moderate in severity. Pain gets worse when she tries to sit up and is better when she is laying down. Pain medications do seem to help some but have not taken it away. She had been treated for urinary tract infection and finally starts to feel like her hesitancy and dysuria are improving after the antibiotics which was made yesterday. She has not been having regular bowel movements and has had firm stool when she has past any in the past few days. No complaints of nausea. Her right upper quadrant pain is improved today compared to yesterday but her lower abdominal pain is stable. No fevers. No shortness of breath. She did have a cholecystectomy for acute cholecystitis with gallstones last night. Laboratory studies are all unremarkable. 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 Pertinent positives and negatives are noted in the history of present illness. All other systems were reviewed and were negative except as noted. Exam - Exam Exam: See Below - Vital Signs Vital Signs: Last Vital Signs Temp 36.8 C 10/09/18 11:38 Pulse 65 10/09/18 11:38 Resp 16 10/09/18 11:38 BP 98/53 L 10/09/18 11:38 Pulse Ox 97 10/09/18 11:38 Weight: 71.6 kg - Exam Quality Assessment: No: Supplemental Oxygen General: Alert, Oriented, Cooperative, Mild Distress HEENT: Mucosa Moist & [place]. No: Scleral Icterus Neck: Supple, Trachea Midline. No: Lymphadenopathy Lungs: Clear to Auscultation, Normal Respiratory Effort, Rhonchi Cardiovascular: Regular Rate, Regular Rhythm Extremities: No Pedal Edema. No: Increased Warmth Skin: Warm, Dry Neuro Extensive - Mental Status: Alert, Oriented x3 Neuro Extensive - Motor, Sensory, Reflexes: CN II-XII Intact. No: Dysarthria, Abnormal Motor, Tremor Psychiatric: Alert, Normal Affect - Patient Data Lab Results Last 24 hrs: Laboratory Results - last 24 hr 10/08/18 10/08/18 10/08/18 Range/Units 15:40 15:40 15:40 WBC 6.5 (4.5-11.0) K/uL RBC 4.75 (3.30-5.50) M/uL Hgb 13.2 (12.0-15.0) g/dL Hct 39.6 (36.0-48.0) % MCV 83 (80-98) fL MCH 28 (27-31) pg MCHC 33 (32-36) % Plt Count 323 (150-400) K/uL Neut % (Auto) 53 (36-66) % Lymph % (Auto) 34 (24-44) % [place] % (Auto) 11 H (2-6) % Eos % (Auto) 2 (2-4) % Baso % (Auto) 1 (0-1) % Sodium 140 (140-148) mmol/L Potassium 3.3 L (3.6-5.2) mmol/L Chloride 103 (100-108) mmol/L Carbon Dioxide 28 (21-32) mmol/L Anion Gap 12.3 (5.0-14.0) mmol/L BUN 7 (7-18) mg/dL Creatinine 0.8 (0.6-1.0) mg/dL Est Cr Clr Drug Dosing 86.63 mL/min Estimated GFR (MDRD) > 60 (>60) Glucose 97 (74-106) mg/dL Calcium 9.1 (8.5-10.1) mg/dL Total Bilirubin 0.6 (0.2-1.0) mg/dL AST 16 (15-37) U/L ALT 22 (12-78) U/L Alkaline Phosphatase 55 (46-116) U/L Total Protein 7.1 (6.4-8.2) g/dL Albumin 3.6 (3.4-5.0) g/dL Globulin 3.5 (2.3-3.5) g/dL Albumin/Globulin Ratio 1.0 L (1.2-2.2) Amylase 56 (25-115) U/L Lipase 123 (73-393) U/L Urine Color Yellow Urine Appearance Clear Urine pH 7.0 (4.5-8.0) Ur Specific [place] 1.010 (1.008-1.030) Urine Protein Negative (NEGATIVE) mg/dL Urine Glucose (UA) Normal (NEGATIVE) mg/dL Urine Ketones Negative (NEGATIVE) mg/dL Urine Occult Blood Moderate (NEGATIVE) Urine Nitrite Negative (NEGATIVE) Urine Bilirubin Negative (NEGATIVE) Urine Urobilinogen Normal (NORMAL) mg/dL Ur Leukocyte Esterase Small (NEGATIVE) Urine RBC 5-10 H (0-5) Urine WBC 10-20 H (0-5) Ur Epithelial Cells Moderate Amorphous Sediment Not seen Urine Bacteria Moderate Urine Mucus Not seen 10/09/18 10/09/18 Range/Units 05:00 06:08 WBC 12.3 H (4.5-11.0) K/uL RBC 4.03 (3.30-5.50) M/uL Hgb 11.2 L D (12.0-15.0) g/dL Hct 34.2 L (36.0-48.0) % MCV 85 (80-98) fL MCH 28 (27-31) pg MCHC 33 (32-36) % Plt Count 297 (150-400) K/uL Neut % (Auto) 82 H (36-66) % Lymph % (Auto) 11 L (24-44) % [place] % (Auto) 8 H (2-6) % Eos % (Auto) 0 L (2-4) % Baso % (Auto) 0 (0-1) % Sodium (140-148) mmol/L Potassium (3.6-5.2) mmol/L Chloride (100-108) mmol/L Carbon Dioxide (21-32) mmol/L Anion Gap (5.0-14.0) mmol/L BUN (7-18) mg/dL Creatinine (0.6-1.0) mg/dL Est Cr Clr Drug Dosing mL/min Estimated GFR (MDRD) (>60) Glucose (74-106) mg/dL Calcium (8.5-10.1) mg/dL Total Bilirubin 0.5 (0.2-1.0) mg/dL AST (15-37) U/L ALT (12-78) U/L Alkaline Phosphatase 44 L (46-116) U/L Total Protein (6.4-8.2) g/dL Albumin (3.4-5.0) g/dL Globulin (2.3-3.5) g/dL Albumin/Globulin Ratio (1.2-2.2) Amylase (25-115) U/L Lipase (73-393) U/L Urine Color Urine Appearance Urine pH (4.5-8.0) Ur Specific [place] (1.008-1.030) Urine Protein (NEGATIVE) mg/dL Urine Glucose (UA) (NEGATIVE) mg/dL Urine Ketones (NEGATIVE) mg/dL Urine Occult Blood (NEGATIVE) Urine Nitrite (NEGATIVE) Urine Bilirubin (NEGATIVE) Urine Urobilinogen (NORMAL) mg/dL Ur Leukocyte Esterase (NEGATIVE) Urine RBC (0-5) Urine WBC (0-5) Ur Epithelial Cells Amorphous Sediment Urine Bacteria Urine Mucus Result Diagrams: 10/09/18 05:00 10/08/18 15:40 Bharath Results Last 24 hrs: Microbiology 10/08/18 21:03 Gram Stain - Final Gallbladder Imaging Impressions Last 24 hrs: CT scan of the abdomen and pelvis - images personally reviewed - gallstones are noted in the gallbladder and common bile duct appears mild to moderately dilated. No pathology to explain lower abdominal pain. No evidence for obstruction. She did have moderate stool in the colon. Consult PN Assessment/Plan POD#: 1 Problem List Initiated/Reviewed/Updated: Yes Plan: ASSESSMENT AND PLAN - Acute calculus cholecystitis - status post cholecystectomy yesterday. Exam and laboratory studies benign. Clinically seems to be improving from the standpoint. -Postoperative cares per surgical team Low midline abdominal pain - patient has been treated for urinary tract infection and this is likely the cause for her pain. There may be a component of muscular pain. Examination is benign. She thinks the pain is slowly better today. Constipation may be contributing but patient is not interested in any sort of bowel stimulation today. -Continue cephalexin for urinary tract infection -Follow-up urine culture Bernabe Vizcarra MD Requesting Provider: Dr Ramirez Date Consult Requested: 10/09/18 Reason for Consult: abdominal pain Patient History Reviewed: Yes Admission H&P Reviewed: Yes Notified Requestor: Yes Time Spent (in minutes): 45
--- NOTE | 2018-10-09 15:20 | PCM.DCSUM1 ---
Discharge Summary - Hospital Course Brief History: Healthy 42-year-old female who presented with 4 days of right upper quadrant abdominal pain. She was admitted for management of acute cholecystitis with cholelithiasis as well as persistent urinary tract infection. Diagnosis: Stroke: No - Discharge Data Discharge Date: 10/09/18 Discharge Disposition: Home, Self-Care 01 Condition: Fair - Discharge Diagnosis/Problem(s) (1) Acute cholecystitis due to biliary calculus SNOMED Code(s): 25718083173391 ICD Code: K80.00 - CALCULUS OF GALLBLADDER W ACUTE CHOLECYST W/O OBSTRUCTION Status: Acute Current Visit: Yes (2) Status post laparoscopic cholecystectomy SNOMED Code(s): 658987587, 91014212, 276434441 ICD Code: Z90.49 - ACQUIRED ABSENCE OF OTHER SPECIFIED PARTS OF DIGESTIVE TRACT Status: Acute Current Visit: Yes (3) UTI (urinary tract infection) SNOMED Code(s): 01345172 ICD Code: N39.0 - URINARY TRACT INFECTION, SITE NOT SPECIFIED Status: Acute Current Visit: Yes Qualifiers: Urinary tract infection type: acute cystitis Hematuria presence: with hematuria Qualified Code(s): N30.01 - Acute cystitis with hematuria - Patient Summary/Data Consults: Consultations 10/08/18 21:35 Respiratory Care Assess and Treatment [CONS] Routine Comment: Physician Instructions: Post-Op Pneumonia Prevention Hospital Course: Lo presented to the emergency room with 4 days of right upper quadrant abdominal pain as well as some lower mid abdominal pain. Workup in the emergency room was suggestive of acute cholecystitis with cholelithiasis as well as a persistent urinary tract infection. She received a dose of ceftriaxone for the persistent urinary tract infection. Surgery was consulted regarding surgical management with acute cholecystitis. She was taken to the operating room the evening after admission and had an uneventful laparoscopic removal of her gallbladder. Several gallstones were removed along with the gallbladder but there is no evidence for choledocholithiasis. Overnight there were no acute issues. The morning after admission she was having some persistent right upper quadrant pain as well as some lower mid abdominal pain. The right upper quadrant pain was tolerable. The lower abdominal pain was thought to be related to her acute cystitis with a possible muscular component. Her pain has been controlled with oral medications. She has been up and walking around. She has been able to tolerate a gentle diet. She feels comfortable going home at this time and I believe is safe for hospital discharge. - Patient Instructions Diet: Regular Diet as Tolerated Activity: As Tolerated, No Lifting Over 10 Pounds (until f/u with Dr Ramirez) Driving: Do Not Drive (if taking pain pills) Showering/Bathing: May Shower Notify Provider of: Fever, Increased Pain, Nausea and/or Vomiting Other/Special Instructions: 1. You were in the hospital for surgical management of acute cholecystitis. You may use acetaminophen and/or ibuprofen for mild pain. You can use the hydrocodone as needed for moderate pain. You will want to eat soft and bland foods for the next several days. 2. Follow-up with Dr. Ramirez in 2 weeks. 3. Please seek medical attention if you develop fever greater than 101, have severe abdominal pain that is not controlled with your pain medications or if you have persistent vomiting. - Discharge Plan *PRESCRIPTION DRUG MONITORING PROGRAM REVIEWED*: Not Applicable *COPY OF PRESCRIPTION DRUG MONITORING REPORT IN PATIENT TAVO: Not Applicable Prescriptions/Med Rec: Acetaminophen/HYDROcodone [[place] 325-5 MG] 1 tab PO Q4H PRN #15 tablet PRN Reason: Pain (Moderate 4-6) cephALEXin [Cephalexin] 500 mg PO TID #12 capsule Home Medications: Home Meds Acetaminophen/HYDROcodone [[place] 325-5 MG] 1 tab PO Q4H PRN #15 tablet 10/09/18 [Rx] cephALEXin [Cephalexin] 500 mg PO TID #12 capsule 10/09/18 [Rx] Oxygen Therapy Mode: Room Air Patient Handouts: Laparoscopic Cholecystectomy, Care After, Cephalexin tablets or capsules Referrals: Cristofer Ramirez MD [Physician] - Jacque Dillard CNM [Primary Care Provider] - (as needed) - Discharge Summary/Plan Comment DC Time >30 min.: No - Patient Data Vitals - Most Recent: Last Vital Signs Temp 36.8 C 10/09/18 11:38 Pulse 65 10/09/18 11:38 Resp 16 10/09/18 11:38 BP 98/53 L 10/09/18 11:38 Pulse Ox 97 10/09/18 11:38 Weight - Most Recent: 71.6 kg I&O - Last 24 hours: Intake & Output 10/09/18 10/09/18 10/09/18 06:59 14:59 22:59 Intake Total 1394 1080 240 Output Total 475 400 Balance 919 680 240 Lab Results - Last 24 hrs: Laboratory Results - last 24 hr 10/08/18 10/08/18 10/08/18 Range/Units 15:40 15:40 15:40 WBC 6.5 (4.5-11.0) K/uL RBC 4.75 (3.30-5.50) M/uL Hgb 13.2 (12.0-15.0) g/dL Hct 39.6 (36.0-48.0) % MCV 83 (80-98) fL MCH 28 (27-31) pg MCHC 33 (32-36) % Plt Count 323 (150-400) K/uL Neut % (Auto) 53 (36-66) % Lymph % (Auto) 34 (24-44) % [place] % (Auto) 11 H (2-6) % Eos % (Auto) 2 (2-4) % Baso % (Auto) 1 (0-1) % Sodium 140 (140-148) mmol/L Potassium 3.3 L (3.6-5.2) mmol/L Chloride 103 (100-108) mmol/L Carbon Dioxide 28 (21-32) mmol/L Anion Gap 12.3 (5.0-14.0) mmol/L BUN 7 (7-18) mg/dL Creatinine 0.8 (0.6-1.0) mg/dL Est Cr Clr Drug Dosing 86.63 mL/min Estimated GFR (MDRD) > 60 (>60) Glucose 97 (74-106) mg/dL Calcium 9.1 (8.5-10.1) mg/dL Total Bilirubin 0.6 (0.2-1.0) mg/dL AST 16 (15-37) U/L ALT 22 (12-78) U/L Alkaline Phosphatase 55 (46-116) U/L Total Protein 7.1 (6.4-8.2) g/dL Albumin 3.6 (3.4-5.0) g/dL Globulin 3.5 (2.3-3.5) g/dL Albumin/Globulin Ratio 1.0 L (1.2-2.2) Amylase 56 (25-115) U/L Lipase 123 (73-393) U/L Urine Color Yellow Urine Appearance Clear Urine pH 7.0 (4.5-8.0) Ur Specific [place] 1.010 (1.008-1.030) Urine Protein Negative (NEGATIVE) mg/dL Urine Glucose (UA) Normal (NEGATIVE) mg/dL Urine Ketones Negative (NEGATIVE) mg/dL Urine Occult Blood Moderate (NEGATIVE) Urine Nitrite Negative (NEGATIVE) Urine Bilirubin Negative (NEGATIVE) Urine Urobilinogen Normal (NORMAL) mg/dL Ur Leukocyte Esterase Small (NEGATIVE) Urine RBC 5-10 H (0-5) Urine WBC 10-20 H (0-5) Ur Epithelial Cells Moderate Amorphous Sediment Not seen Urine Bacteria Moderate Urine Mucus Not seen 10/09/18 10/09/18 Range/Units 05:00 06:08 WBC 12.3 H (4.5-11.0) K/uL RBC 4.03 (3.30-5.50) M/uL Hgb 11.2 L D (12.0-15.0) g/dL Hct 34.2 L (36.0-48.0) % MCV 85 (80-98) fL MCH 28 (27-31) pg MCHC 33 (32-36) % Plt Count 297 (150-400) K/uL Neut % (Auto) 82 H (36-66) % Lymph % (Auto) 11 L (24-44) % Swisher % (Auto) 8 H (2-6) % Eos % (Auto) 0 L (2-4) % Baso % (Auto) 0 (0-1) % Sodium (140-148) mmol/L Potassium (3.6-5.2) mmol/L Chloride (100-108) mmol/L Carbon Dioxide (21-32) mmol/L Anion Gap (5.0-14.0) mmol/L BUN (7-18) mg/dL Creatinine (0.6-1.0) mg/dL Est Cr Clr Drug Dosing mL/min Estimated GFR (MDRD) (>60) Glucose (74-106) mg/dL Calcium (8.5-10.1) mg/dL Total Bilirubin 0.5 (0.2-1.0) mg/dL AST (15-37) U/L ALT (12-78) U/L Alkaline Phosphatase 44 L (46-116) U/L Total Protein (6.4-8.2) g/dL Albumin (3.4-5.0) g/dL Globulin (2.3-3.5) g/dL Albumin/Globulin Ratio (1.2-2.2) Amylase (25-115) U/L Lipase (73-393) U/L Urine Color Urine Appearance Urine pH (4.5-8.0) Ur Specific [place] (1.008-1.030) Urine Protein (NEGATIVE) mg/dL Urine Glucose (UA) (NEGATIVE) mg/dL Urine Ketones (NEGATIVE) mg/dL Urine Occult Blood (NEGATIVE) Urine Nitrite (NEGATIVE) Urine Bilirubin (NEGATIVE) Urine Urobilinogen (NORMAL) mg/dL Ur Leukocyte Esterase (NEGATIVE) Urine RBC (0-5) Urine WBC (0-5) Ur Epithelial Cells Amorphous Sediment Urine Bacteria Urine Mucus RUEL Results - Last 24 hrs: Microbiology 10/08/18 21:03 Gram Stain - Final Gallbladder Med Orders - Current: Current Medications Hydrocodone Bitart/Acetaminophen ([place] 325-5 Mg) 1 - 2 tab PO Q4H PRN PRN Reason: Pain (moderate 4-6) Last Admin: 10/09/18 14:57 Dose: 1 tab Cephalexin (Keflex) [address] [facility] Last Admin: 10/09/18 15:00 Dose: 500 mg Fentanyl (Sublimaze) 50 mcg IVPUSH Q1H PRN PRN Reason: Pain Last Admin: 10/08/18 22:10 Dose: 50 mcg Sodium Chloride (Normal Saline) 1,000 mls @ 500 mls/hr IV ASDIRECTED [facility] Last Admin: 10/08/18 15:52 Dose: 500 mls/hr Dextrose/Lactated Ringer's (Dextrose 5%-Lactated Ringers) 1,000 mls @ 125 mls/ hr IV ASDIRECTED [facility] Last Admin: 10/09/18 04:57 Dose: 125 mls/hr Ondansetron HCl (Zofran) 4 mg IVPUSH Q6H PRN PRN Reason: Nausea/Vomiting Discontinued Medications Bupivacaine HCl (Marcaine 0.5%) Confirm Administered Dose 50 ml .ROUTE .STK-MED ONE Stop: 10/08/18 18:21 Last Admin: 10/08/18 20:04 Dose: 10 ml Dexamethasone (Dexamethasone) Confirm Administered Dose 4 mg .ROUTE .STK-MED ONE Stop: 10/08/18 18:18 Fentanyl (Sublimaze) Confirm Administered Dose 250 mcg .ROUTE .STK-MED ONE Stop: 10/08/18 18:17 Glycopyrrolate (Robinul) Confirm Administered Dose 1 mg .ROUTE .STK-MED ONE Stop: 10/08/18 18:18 Sodium Chloride (Normal Saline) 75 mls @ 3.5 mls/sec IV ONETIME ONE Stop: 10/08/18 16:25 Last Admin: 10/08/18 16:39 Dose: 3.5 mls/sec Ceftriaxone Sodium 1 gm/ (Sodium Chloride) 50 mls @ 100 mls/hr IV ONETIME ONE Stop: 10/08/18 18:01 Last Admin: 10/08/18 17:48 Dose: 100 mls/hr Lactated Ringer's (Ringers, Lactated) Confirm Administered Dose 1,000 mls @ as directed .ROUTE .ST-MED ONE Stop: 10/08/18 18:36 Iopamidol (Isovue-300 (61%)) 100 ml IV . DIRECTED MARK Stop: 10/08/18 18:00 Last Admin: 10/08/18 16:39 Dose: 100 ml Lidocaine/Epinephrine (Xylocaine 1% With Epinephrine 1:100,000) Confirm Administered Dose 50 ml .ROUTE .ST-MED ONE Stop: 10/08/18 18:21 Last Admin: 10/08/18 20:04 Dose: 10 ml Midazolam HCl (Versed 1 Mg/Ml) Confirm Administered Dose 2 mg .ROUTE .STK-MED ONE Stop: 10/08/18 18:17 Neostigmine Methylsulfate (Neostigmine) Confirm Administered Dose 5 mg .ROUTE .STK-MED ONE Stop: 10/08/18 18:18 Ondansetron HCl (Zofran) Confirm Administered Dose 4 mg .ROUTE .STK-MED ONE Stop: 10/08/18 18:18 Propofol (Diprivan 20 Ml) Confirm Administered Dose 200 mg .ROUTE .STK-MED ONE Stop: 10/08/18 18:18 Rocuronium [place] (Zemuron) Confirm Administered Dose 50 mg .ROUTE .STK-MED ONE Stop: 10/08/18 18:18 Sodium Chloride (Saline Flush) 10 ml FLUSH ONETIME ONE Stop: 10/08/18 16:25 Last Admin: 10/08/18 16:39 Dose: 10 ml Succinylcholine Chloride (Quelicin) Confirm Administered Dose 200 mg .ROUTE .[facility] [[email or web address] -[facility] ONE Stop: 10/08/18 18:18 - Exam Quality Assessment: Denies: Supplemental Oxygen General: Reports: Alert, Oriented, Cooperative, No Acute Distress Lungs: Reports: Normal Respiratory Effort GI/Abdominal Exam: Soft, No Distention, Tender Psy/Mental Status: Reports: Alert, Normal Affect
== END 2018-10-09 16:32 | disposition home or self-care (01) ==
LOC: JP.ED 14:44 → JP.SDS 17:58 → EEVIPCON 17:58 → JP.MS 20:25 → JP.SDS 10-09 16:32
PROVIDERS: ATTEND Surgery
DX: K80.12 Calculus of gallbladder with acute and chronic cholecystitis without obstruction (principal); N30.01 Acute cystitis with hematuria; K21.9 Gastro-esophageal reflux disease without esophagitis; Z91.040 Latex allergy status
CPT/HCPCS: 36415; 74177; 80053; 81001; 82150; 82247; 83690; 84075; 85025; 87070; 87075; 87086; 87205; 88304; 94762; 96361; 96365; 99284-25; A9270-GY; J0330; J0696; J1100; J2250; J2405; J2704; J2710; J3010; J3490; J7030; J7042; J7050; J7120; Q9967